=== PATIENT | female | born 1980 | race Caucasian/White ===

== ENCOUNTER 2016-12-14 12:06 | Emergency (ER) | payer OTHER ==
[~2016-12-14] VITALS: Ht 149.9 cm; Wt 100.3 kg
[2016-12-14 13:02] LABS: BASOPHIL % 0.7 % (0-2); PLATELET COUNT 254 x10^3mcL (130-400); RED CELL DISTRIBUTION WIDTH 14.3 % (11.5-14.5)
[2016-12-14 13:12] LABS: CALCIUM 8.8 mg/dL (8.5-10.1); CARBON DIOXIDE 26.3 mmol/L (21-32); CHLORIDE SERUM 106 mmol/L (98-107); CREATININE SERUM 0.6 mg/dL (0.6-1.0); GFR1 > 60 mL/min; GLUCOSE SERUM 90 mg/dL (74-106); POTASSIUM SERUM 4.3 mmol/L (3.5-5.1); SODIUM SERUM 141 mmol/L (136-145)
[2016-12-14 13:16] LABS: ALBUMIN 3.7 g/dL (3.4-5.0); ALKALINE PHOSPHATASE 57 U/L (46-116); ALT/SGPT 38 U/L (14-59); AMYLASE 48 U/L (25-115); AST/SGOT 22 U/L (15-37); BILIRUBIN TOTAL 0.58 mg/dL (0.20-1.00); LIPASE 110 IU/L (73-393); TOTAL PROTEIN, SERUM 7.5 g/dL (6.4-8.2)
[2016-12-14 14:15] VITALS: BP 166/87
== END 2016-12-14 14:15 | disposition home or self-care (01) ==
LOC: ED 12:06
PROVIDERS: Emergency Medicine
DX: K63.89 Other specified diseases of intestine (principal)
CPT/HCPCS: J1885

== ENCOUNTER 2018-11-25 15:06 | Emergency (ER) | payer OTHER ==
[~2018-11-25] VITALS: Ht 149.9 cm; Wt 104.8 kg
[2018-11-25 15:34] VITALS: BP 126/78
== END 2018-11-25 17:42 | disposition home or self-care (01) ==
LOC: ED 15:06
DX: S53.401A Unspecified sprain of right elbow, initial encounter (principal); S80.211A Abrasion, right knee, initial encounter; S49.91XA Unspecified injury of right shoulder and upper arm, initial encounter; Z88.8 Allergy status to other drugs, medicaments and biological substances; Z90.49 Acquired absence of other specified parts of digestive tract; W01.0XXA Fall on same level from slipping, tripping and stumbling without subsequent striking against object, initial encounter; Y93.89 Activity, other specified; Y92.89 Other specified places as the place of occurrence of the external cause; Y99.8 Other external cause status